=== PATIENT | male | born 1940 | race African-American/Black ===

== ENCOUNTER → 2017-09-16 | Outpatient (CLI) | payer MEDICARE, OTHER ==
[~2017-09-16] MED LIST: AMLO10TA82 PO; ASPI-84 PO; CPR500T PO; FLUT1DIS26 IH; HCT25T PO; NAPR220C PO; NAPR250T34 PO; NEOM28OI3 TP; OXYC1TAB87 PO; POTA10CA43 PO; SIMV40TA2 PO; TERA10CA15 PO; TERA10CA3 PO; VALA100033 PO
--- NOTE | 2017-09-16 11:11 | Diagnostic Imaging Report ---
INDICATION: COPD and atelectasis. TIME OF EXAMINATION: 11:23 AM. COMPARISON: 06/06/2010. FINDINGS: The heart size is stable. The lungs appear to be clear. There is hyperinflation, consistent with COPD. No infiltrates are identified. No effusion or pneumothorax is seen. IMPRESSION: COPD. No other significant abnormality is detected. Dictated by: Dictated on workstation # [id number]
== END ==
LOC: RAD 10:47
PROVIDERS: ATTEND Nurse Practitioner Family
DX: J44.9 Chronic obstructive pulmonary disease, unspecified (principal); J98.11 Atelectasis; G82.20 Paraplegia, unspecified
CPT/HCPCS: 71046